=== PATIENT | male | born 1970 | race Caucasian/White ===

== ENCOUNTER 2019-07-12 15:04 | Observation (INO) | payer OTHER ==
[2019-07-12 15:09] VITALS: RESP 18
[2019-07-12 15:30] LABS: Glucose,Whole Blood 119 mg/dL (75-99)
[2019-07-12] MEDS ORDERED: SODIUM CHLORIDE 0.9% 1,000 ML IV STA (15:45)
--- NOTE | 2019-07-12 16:02 | ED ---
Dizziness HPI - General Chief Complaint: Dizziness Stated Complaint: Dizzy Time Seen by Provider: 07/12/19 15:13 Source: patient, RN notes reviewed, old records reviewed Mode of arrival: ambulatory Limitations: no limitations - History of Present Illness Initial Comments: Patient is a 49-year-old male, and advises female. Presents emergency department today for evaluation for dizziness and multiple near syncopal episodes. Patient reports that he's had some episodes of chest pain, but denies current chest pain. He denies any fevers or chills or coughing. He does smoke, and does report a family history of heart disease. Patient states that he's had a few episodes where he is almost passed out completely to his head but he catches himself. Patient reports that he has had history of chronic back pain. He denies any abdominal pain or nausea. - Related Data Home Medications Medication Instructions Recorded Confirmed Cetirizine HCl [Zyrtec] 10 mg PO HS 07/12/19 07/12/19 Citalopram Hydrobromide [CeleXA] 20 mg PO HS 07/12/19 07/12/19 Fluticasone Nasal [place] [Flonase 2 spray EA NOSTRIL HS 07/12/19 07/12/19 Nasal [place]] Gabapentin [Neurontin] 100 mg PO HS 07/12/19 07/12/19 metFORMIN HCL [Glucophage] 500 mg PO BID 07/12/19 07/12/19 Allergies Allergy/AdvReac Type Severity Reaction Status Date / Time No Known Allergies Allergy Verified 07/12/19 16:05 Review of Systems ROS Statement: Those systems with pertinent positive or pertinent negative responses have been documented in the HPI. ROS Other: All systems not noted in ROS Statement are negative. Past Medical History Past Medical History: Diabetes Mellitus History of Any Multi-Drug Resistant Organisms: None Reported Past Surgical History: No Surgical Hx Reported Past Psychological History: No Psychological Hx Reported Smoking Status: Former smoker Past Alcohol Use History: Occasional Past Drug Use History: Marijuana General Exam - General Exam Comments Initial Comments: Is a 49-year-old male, indentifies as female. Alert and oriented. Limitations: no limitations General appearance: alert, in no apparent distress Head exam: Present: atraumatic, normocephalic, normal inspection Eye exam: Present: normal appearance, PERRL, EOMI. Absent: scleral icterus, conjunctival injection, periorbital swelling ENT exam: Present: normal exam, mucous membranes moist Neck exam: Present: normal inspection. Absent: tenderness, meningismus, lymphadenopathy Respiratory exam: Present: normal lung sounds bilaterally. Absent: respiratory distress, wheezes, rales, rhonchi, stridor Cardiovascular Exam: Present: regular rate, normal rhythm, normal heart sounds. Absent: systolic murmur, diastolic murmur, rubs, gallop, clicks GI/Abdominal exam: Present: soft, normal bowel sounds. Absent: distended, tenderness, guarding, rebound, rigid Extremities exam: Present: normal inspection, full ROM, normal capillary refill. Absent: tenderness, pedal edema, joint swelling, calf tenderness Back exam: Present: normal inspection Neurological exam: Present: alert, oriented X3, CN II-XII intact Psychiatric exam: Present: normal affect Skin exam: Present: warm Course Vital Signs 07/12/19 07/12/19 07/12/19 15:05 16:00 17:22 Temperature 98.5 F Pulse Rate 116 H 88 86 Respiratory 18 18 18 Rate Blood Pressure 140/87 138/105 153/90 O2 Sat by Pulse 94 L 98 99 Oximetry Medical Decision Making - Medical Decision Making Patient is a 49-year-old male, identifies as presents female. Presents today for evaluation for dizziness and near syncopal episodes. Patient reports symptoms of been worse over the past 2 days. Patient states he also had some intermittent chest pain but denies any of this time. His main complaint is the dizziness with standing as well as back pain. Patient is given IV fluids, lab work was obtained. EKG was reviewed and no acute ST changes. This time he had troponin 0.013. I discussed concern for the multiple syncopal episodes could be cardiac related. I he has no hybrid tester at this time. I discussed also with intermittent chest pain could admit the Patient for further evaluation by cardiology. Patient is agreeable to this. - Lab Data Result diagrams: 07/12/19 15:25 07/12/19 15:25 Lab Results 07/12/19 07/12/19 07/12/19 Range/Units 15:25 15:25 15:25 WBC 5.2 (3.8-10.6) k/uL RBC 4.80 (4.30-5.90) m/uL Hgb 16.0 (13.0-17.5) gm/dL Hct 48.4 (39.0-53.0) % MCV 101.0 H (80.0-100.0) fL MCH 33.3 (25.0-35.0) pg MCHC 33.0 (31.0-37.0) g/dL RDW 13.1 (11.5-15.5) % Plt Count 183 (150-450) k/uL Neutrophils % 70 % Lymphocytes % 18 % Monocytes % 8 % Eosinophils % 1 % Basophils % 1 % Neutrophils # 3.7 (1.3-7.7) k/uL Lymphocytes # 0.9 L (1.0-4.8) k/uL Monocytes # 0.4 (0-1.0) k/uL Eosinophils # 0.1 (0-0.7) k/uL Basophils # 0.1 (0-0.2) k/uL PT 10.5 (9.0-12.0) sec INR 1.0 (<1.2) Sodium 139 (137-145) mmol/L Potassium 3.7 (3.5-5.1) mmol/L Chloride 97 L (98-107) mmol/L Carbon Dioxide 29 (22-30) mmol/L Anion Gap 13 mmol/L BUN 20 (9-20) mg/dL Creatinine 0.97 (0.66-1.25) mg/dL Est GFR (CKD-EPI)AfAm >90 (>60 ml/min/1.73 sqM) Est GFR (CKD-EPI)NonAf >90 (>60 ml/min/1.73 sqM) Glucose 121 H (74-99) mg/dL POC Glucose (mg/dL) (75-99) mg/dL POC Glu Thread Milling Machine Set Up Operator ID Plasma Lactic Acid Thomas (0.7-2.0) mmol/L Calcium 9.9 (8.4-10.2) mg/dL Total Bilirubin 1.1 (0.2-1.3) mg/dL AST 147 H (17-59) U/L ALT 148 H (21-72) U/L Alkaline Phosphatase 66 (38-126) U/L Troponin I (0.000-0.034) ng/mL Total Protein 8.9 H (6.3-8.2) g/dL Albumin 4.8 (3.5-5.0) g/dL Urine Color Urine Appearance (Clear) Urine pH (5.0-8.0) Ur Specific [place] (1.001-1.035) Urine Protein (Negative) Urine Glucose (UA) (Negative) Urine Ketones (Negative) Urine Blood (Negative) Urine Nitrite (Negative) Urine Bilirubin (Negative) Urine Urobilinogen (<2.0) mg/dL Ur Leukocyte Esterase (Negative) 07/12/19 07/12/19 07/12/19 Range/Units 15:25 15:25 15:28 WBC (3.8-10.6) k/uL RBC (4.30-5.90) m/uL Hgb (13.0-17.5) gm/dL Hct (39.0-53.0) % MCV (80.0-100.0) fL MCH (25.0-35.0) pg MCHC (31.0-37.0) g/dL RDW (11.5-15.5) % Plt Count (150-450) k/uL Neutrophils % % Lymphocytes % % Monocytes % % Eosinophils % % Basophils % % Neutrophils # (1.3-7.7) k/uL Lymphocytes # (1.0-4.8) k/uL Monocytes # (0-1.0) k/uL Eosinophils # (0-0.7) k/uL Basophils # (0-0.2) k/uL PT (9.0-12.0) sec INR (<1.2) Sodium (137-145) mmol/L Potassium (3.5-5.1) mmol/L Chloride (98-107) mmol/L Carbon Dioxide (22-30) mmol/L Anion Gap mmol/L BUN (9-20) mg/dL Creatinine (0.66-1.25) mg/dL Est GFR (CKD-EPI)AfAm (>60 ml/min/1.73 sqM) Est GFR (CKD-EPI)NonAf (>60 ml/min/1.73 sqM) Glucose (74-99) mg/dL POC Glucose (mg/dL) 119 H (75-99) mg/dL POC Glu [employer] Machine Set Up Operator ID Delia Woodard Plasma Lactic Acid Thomas 1.0 (0.7-2.0) mmol/L Calcium (8.4-10.2) mg/dL Total Bilirubin (0.2-1.3) mg/dL AST (17-59) U/L ALT (21-72) U/L Alkaline Phosphatase (38-126) U/L Troponin I 0.013 (0.000-0.034) ng/mL Total Protein (6.3-8.2) g/dL Albumin (3.5-5.0) g/dL Urine Color Urine Appearance (Clear) Urine pH (5.0-8.0) Ur Specific [place] (1.001-1.035) Urine Protein (Negative) Urine Glucose (UA) (Negative) Urine Ketones (Negative) Urine Blood (Negative) Urine Nitrite (Negative) Urine Bilirubin (Negative) Urine Urobilinogen (<2.0) mg/dL Ur Leukocyte Esterase (Negative) 07/12/19 Range/Units 16:00 WBC (3.8-10.6) k/uL RBC (4.30-5.90) m/uL Hgb (13.0-17.5) gm/dL Hct (39.0-53.0) % MCV (80.0-100.0) fL MCH (25.0-35.0) pg MCHC (31.0-37.0) g/dL RDW (11.5-15.5) % Plt Count (150-450) k/uL Neutrophils % % Lymphocytes % % Monocytes % % Eosinophils % % Basophils % % Neutrophils # (1.3-7.7) k/uL Lymphocytes # (1.0-4.8) k/uL Monocytes # (0-1.0) k/uL Eosinophils # (0-0.7) k/uL Basophils # (0-0.2) k/uL PT (9.0-12.0) sec INR (<1.2) Sodium (137-145) mmol/L Potassium (3.5-5.1) mmol/L Chloride (98-107) mmol/L Carbon Dioxide (22-30) mmol/L Anion Gap mmol/L BUN (9-20) mg/dL Creatinine (0.66-1.25) mg/dL Est GFR (CKD-EPI)AfAm (>60 ml/min/1.73 sqM) Est GFR (CKD-EPI)NonAf (>60 ml/min/1.73 sqM) Glucose (74-99) mg/dL POC Glucose (mg/dL) (75-99) mg/dL POC Glu [employer] Milling Machine Set Up Operator ID Plasma Lactic Acid Thomas (0.7-2.0) mmol/L Calcium (8.4-10.2) mg/dL Total Bilirubin (0.2-1.3) mg/dL AST (17-59) U/L ALT (21-72) U/L Alkaline Phosphatase (38-126) U/L Troponin I (0.000-0.034) ng/mL Total Protein (6.3-8.2) g/dL Albumin (3.5-5.0) g/dL Urine Color Yellow Urine Appearance Clear (Clear) Urine pH 5.5 (5.0-8.0) Ur Specific [place] 1.006 (1.001-1.035) Urine Protein Trace H (Negative) Urine Glucose (UA) Negative (Negative) Urine Ketones Trace H (Negative) Urine Blood Negative (Negative) Urine Nitrite Negative (Negative) Urine Bilirubin Negative (Negative) Urine Urobilinogen <2.0 (<2.0) mg/dL Ur Leukocyte Esterase Negative (Negative) - Radiology Data Radiology results: report reviewed EKG shows normal sinus rhythm and normal EKG. Ventricular rate 96 bpm. Intervals 116 ms. QRS duration is 82 ms. QT QTC 356/449 ms. Disposition Clinical Impression: Dizziness, Syncope Disposition: HOME SELF-CARE Condition: Good Is patient prescribed a controlled substance at d/c from ED?: No Referrals: Dolores Garza MD [Primary Care Provider] - 1-2 days Time of Disposition: 17:22
--- NOTE | 2019-07-12 16:16 | XR ---
EXAMINATION TYPE: XR chest 2V DATE OF EXAM: 07/12/2019 COMPARISON: 07/15/2013 HISTORY: Chest pain TECHNIQUE: Frontal and lateral views of the chest are obtained. FINDINGS: There is no focal air space opacity. No evidence for pneumothorax. No pleural effusion. The cardiac silhouette size is within normal limits. The osseous structures are grossly intact. IMPRESSION: 1. No acute cardiopulmonary process.
[2019-07-12 16:17] LABS: Prothrombin Time 10.5 sec (9.0-12.0)
[2019-07-12 16:19] LABS: ALT 148 U/L (21-72); AST 147 U/L (17-59); African American GFR (CKD) >90 (>60 ml/min/1.73 sqM); Albumin 4.8 g/dL (3.5-5.0); Alkaline Phosphatase 66 U/L (38-126); Anion Gap 13 mmol/L; Blood Urea Nitrogen 20 mg/dL (9-20); Calcium 9.9 mg/dL (8.4-10.2); Carbon Dioxide 29 mmol/L (22-30); Chloride 97 mmol/L (98-107); Glucose 121 mg/dL (74-99); Potassium 3.7 mmol/L (3.5-5.1); Sodium 139 mmol/L (137-145); Total Bilirubin 1.1 mg/dL (0.2-1.3); Total Protein 8.9 g/dL (6.3-8.2)
[2019-07-12 16:20] LABS: Basophils # (A) 0.1 k/uL (0-0.2); Basophils % (A) 1 %; Eosinophils # (A) 0.1 k/uL (0-0.7); Eosinophils % (A) 1 %; HCT 48.4 % (39.0-53.0); Lymphocytes # (A) 0.9 k/uL (1.0-4.8); Lymphocytes % (A) 18 %; MCH 33.3 pg (25.0-35.0); Mean Platelet Volume 6.6; Monocytes # (A) 0.4 k/uL (0-1.0); Monocytes % (A) 8 %; Neutrophils # (A) 3.7 k/uL (1.3-7.7); Neutrophils % (A) 70 %; Platelet Count 183 k/uL (150-450); RDW 13.1 % (11.5-15.5); WBC 5.2 k/uL (3.8-10.6)
[2019-07-12 17:17] LABS: Appearance,Urine Clear (Clear); Bilirubin,Urine Negative (Negative); Blood,Urine Negative (Negative); Color,Urine Yellow; Glucose,Urine (UA) Negative (Negative); Ketones,Urine Trace (Negative); Leukocyte Esterase,Urine Negative (Negative); Nitrite,Urine Negative (Negative); PH, Urine 5.5 (5.0-8.0); Protein,Urine Trace (Negative); Specific Gravity,Urine 1.006 (1.001-1.035); Urobilinogen,Urine <2.0 mg/dL (<2.0)
[2019-07-12] MEDS ORDERED: KETOROLAC 30 MG/ML 1 ML VIAL IVP STA (17:20)
[2019-07-12] MEDS ORDERED: NITROGLYCERIN SL TABS 0.4 MG TAB SUBLINGUAL PRN (17:33)
[2019-07-12] MEDS: SODIUM CHLORIDE 0.9% 1,000 ML IV SCH ×2 (18:30→23:28)
[2019-07-13 03:54] LABS: Cholesterol 133 mg/dL (<200); HDL Cholesterol 31 mg/dL (40-60); LDL Cholesterol,Calculated 83 mg/dL (0-99); Triglycerides 96 mg/dL (<150)
[2019-07-13 08:03] VITALS: BP 136/86
[2019-07-13] MEDS ORDERED: ASPIRIN 325 MG TAB PO SCH (09:00)
[2019-07-13] MEDS ORDERED: ATORVASTATIN 40 MG TAB PO SCH (10:30)
--- NOTE | 2019-07-13 11:07 | US ---
EXAMINATION TYPE: US gallbladder DATE OF EXAM: 07/13/2019 COMPARISON: NONE CLINICAL HISTORY: elevated liver enzymes. Elevated liver enzymes, N/V EXAM MEASUREMENTS: Liver Length: 13.7 cm Gallbladder Wall: 0.2 cm CBD: 0.3 cm Right Kidney: 10.3 x 5.5 x 4.4 cm Pancreas: obscured by overlying midline bowel gas Liver: mildly heterogeneous, increased echogenicity, attenuating, scanned intercostally, limited by rib shadowing Gallbladder: visualized portions wnl Evidence for sonographic Ortega's sign: no CBD: visualized portions wnl, limited by overlying bowel gas Right Kidney: wnl, limited by rib shadowing Initial image saved shows gas from shadowing bowel during pancreas. Visualized liver is heterogeneous ly hyperechoic. No hepatic ductal dilatation. Evaluation for focal masses is suboptimal due to the he terogeneity. No adjacent ascites is present. IMPRESSION: Suboptimal study. Heterogeneous hyperechoic appearance of liver could reflect products of diffuse fatty infiltration or underlying hepatocellular disease. Imaging guided random biopsy for ti ssue analysis can be performed if desired.
[2019-07-13 11:23] VITALS: BMI 21.2
[2019-07-13 11:54] LABS: Glucose,Whole Blood 125 mg/dL (75-99)
--- NOTE | 2019-07-13 11:55 | ECHOF ---
Referral Reason:near syncope MEASUREMENTS -------- HEIGHT: 160.0 cm WEIGHT: 58.1 kg BP: 136/86 RVIDd: 3.2 cm (< 3.3) IVSd: 0.9 cm (0.6 - 1.1) LVIDd: 4.6 cm (3.9 - 5.3) LVPWd: 0.7 cm (0.6 - 1.1) IVSs: 1.3 cm LVIDs: 3.0 cm LVPWs: 1.2 cm LA Diam: 3.8 cm (2.7 - 3.8) LAESV Index (A-L): 22.73 ml/m Ao Diam: 2.8 cm (2.0 - 3.7) AV Cusp: 1.7 cm (1.5 - 2.6) LA Diam: 3.5 cm (2.7 - 3.8) MV EXCURSION: 19.436 mm (> 18.000) MV EF SLOPE: 97 mm/s (70 - 150) EPSS: 0.5 cm MV E Uriah: 0.72 m/s MV DecT: 162 ms MV A Uriah: 0.66 m/s MV E/A Ratio: 1.10 RAP: 5.00 mmHg RVSP: 29.15 mmHg FINDINGS -------- Sinus rhythm. This was a technically good study. LV size, wall thickness and systolic function are normal, with an EF greater than 55%. The left tiburcio tricular size is normal. The diastolic filling pattern is normal for the age of the patient 8.55. The right ventricle is normal in size. The left atrial size is normal. The right atrial size is normal. The aortic valve is trileaflet, and appears structurally normal. No aortic stenosis or regurgitation. Mild mitral regurgitation is present. No regurgitation noted There is no evidence of pulmonary hypertension. The right ventricular syst olic pressure, as measured by Doppler, is 29.15mmHg. There is no pulmonic regurgitation present. The aortic root size is normal. There is no pericardial effusion. CONCLUSIONS -------- 1. Sinus rhythm. 2. This was a technically good study. 3. LV size, wall thickness and systolic function are normal, with an EF greater than 55%. 4. The left ventricular size is normal. 5. The diastolic filling pattern is normal for the age of the patient 8.55 6. The right ventricle is normal in size. 7. The left atrial size is normal. 8. The right atrial size is normal. 9. The aortic valve is trileaflet, and appears structurally normal. No aortic stenosis or regurgitati on. 10. Mild mitral regurgitation is present. 11. No regurgitation noted 12. There is no evidence of pulmonary hypertension. 13. The right ventricular systolic pressure, as measured by Doppler, is 29.15mmHg. 14. There is no pulmonic regurgitation present. 15. The aortic root size is normal. 16. There is no pericardial effusion. MOLD TECHNICIAN: Shannon Soto RDCS
--- NOTE | 2019-07-13 12:03 | P.HPIM ---
History of Present Illness 49-year-old came with compensative lightheadedness was started yesterday. Patient was having diarrhea which appears to be viral gastroenteritis let to hypovolemia patient's orthostatic vitals are positive. Patient had an echocardiogram which did not show any valve abnormity had normal ejection fraction. Patient is found have elevated liver enzymes when questioned patient does have history of hepatitis C and some chronic liver disease and fatty liver. Patient was diagnosed with hep C which was diagnosed in 2002 was on medications for that briefly after that was discontinued. Patient will follow with gastroneurology as an outpatient for further workup for hep C and treatment. Review of Systems REVIEW OF SYSTEMS: CONSTITUTIONAL: No fever, no malaise, no fatigue. HEENT: No recent visual problems or hearing problems. Denied any sore throat. CARDIOVASCULAR: No chest pain, orthopnea, PND, no palpitations, no syncope. PULMONARY: No shortness of breath, no cough, no hemoptysis. GASTROINTESTINAL: No diarrhea, no nausea, no vomiting, no abdominal pain. NEUROLOGICAL: No headaches, no weakness, no numbness. HEMATOLOGICAL: Denies any bleeding or petechiae. GENITOURINARY: Denies any burning micturition, frequency, or urgency. MUSCULOSKELETAL/RHEUMATOLOGICAL: Denies any joint pain, swelling, or any muscle pain. ENDOCRINE: Denies any polyuria or polydipsia. The rest of the 14-point review of systems is negative. Past Medical History Past Medical History: Diabetes Mellitus, Neurologic Disorder History of Any Multi-Drug Resistant Organisms: None Reported Past Surgical History: Hernia Repair Past Anesthesia/Blood Transfusion Reactions: No Reported Reaction Past Psychological History: Anxiety, Depression Smoking Status: Former smoker Past Alcohol Use History: Occasional Past Drug Use History: Marijuana - Past Family History Father Family Medical History: Coronary Artery Disease (CAD), Diabetes Mellitus Mother Family Medical History: AICD/Pacemaker, Rheumatoid Arthritis (RA) Medications and Allergies Home Medications Medication Instructions Recorded Confirmed Type Cetirizine HCl [Zyrtec] 10 mg PO HS 07/12/19 07/12/19 History Citalopram Hydrobromide [CeleXA] 20 mg PO HS 07/12/19 07/12/19 History Fluticasone Nasal [place] [Flonase 2 spray EA NOSTRIL HS 07/12/19 07/12/19 History Nasal [place]] Gabapentin [Neurontin] 100 mg PO HS 07/12/19 07/12/19 History metFORMIN HCL [Glucophage] 500 mg PO BID 07/12/19 07/12/19 History Atorvastatin [Lipitor] 20 mg PO HS #30 tab 07/13/19 Rx Allergies Allergy/AdvReac Type Severity Reaction Status Date / Time No Known Allergies Allergy Verified 07/12/19 16:05 Physical Exam Vitals: Vital Signs Temp Pulse Pulse Pulse Pulse Pulse Resp 07/13/19 08:00 98.2 F 73 18 07/13/19 04:00 97.6 F 72 18 07/13/19 03:58 79 18 07/13/19 00:00 98.3 F 79 18 07/12/19 20:00 88 18 07/12/19 19:53 98.8 F 88 18 07/12/19 19:48 07/12/19 18:29 101 H 07/12/19 18:27 88 18 07/12/19 18:25 80 18 07/12/19 17:22 86 18 07/12/19 16:00 88 18 07/12/19 15:05 98.5 F 116 H 18 BP BP BP BP BP Pulse Ox 07/13/19 08:00 136/86 99 07/13/19 04:00 129/80 99 07/13/19 03:58 07/13/19 00:00 119/74 98 07/12/19 20:00 07/12/19 19:53 130/82 98 07/12/19 19:48 98 07/12/19 18:29 93/75 07/12/19 18:27 128/93 07/12/19 18:25 148/93 07/12/19 17:22 153/90 99 07/12/19 16:00 138/105 98 07/12/19 15:05 140/87 94 L Intake and Output 07/12/19 07/13/19 07/13/19 22:59 06:59 14:59 Other: # Voids 1 Weight 58.06 kg 58.06 kg PHYSICAL EXAMINATION: GENERAL: The patient is alert and oriented x3, not in any acute distress. Well developed, well nourished. HEENT: Pupils are round and equally reacting to light. EOMI. No scleral icterus. No conjunctival pallor. Normocephalic, atraumatic. No pharyngeal erythema. No thyromegaly. CARDIOVASCULAR: S1 and S2 present. No murmurs, rubs, or gallops. PULMONARY: Chest is clear to auscultation, no wheezing or crackles. ABDOMEN: Soft, nontender, nondistended, normoactive bowel sounds. No palpable organomegaly. MUSCULOSKELETAL: No joint swelling or deformity. EXTREMITIES: No cyanosis, clubbing, or pedal edema. NEUROLOGICAL: Gross neurological examination did not reveal any focal deficits. SKIN: No rashes. Results CBC & Chem 7: 07/12/19 15:25 07/12/19 15:25 Labs: Abnormal Lab Results - Last 24 Hours (Table) 07/12/19 07/12/19 07/12/19 Range/Units 15:25 15:25 15:28 MCV 101.0 H (80.0-100.0) fL Lymphocytes # 0.9 L (1.0-4.8) k/uL Chloride 97 L (98-107) mmol/L Glucose 121 H (74-99) mg/dL POC Glucose (mg/dL) 119 H (75-99) mg/dL AST 147 H (17-59) U/L ALT 148 H (21-72) U/L Total Protein 8.9 H (6.3-8.2) g/dL HDL Cholesterol (40-60) mg/dL Urine Protein (Negative) Urine Ketones (Negative) 07/12/19 07/13/19 07/13/19 Range/Units 16:00 03:25 11:53 MCV (80.0-100.0) fL Lymphocytes # (1.0-4.8) k/uL Chloride (98-107) mmol/L Glucose (74-99) mg/dL POC Glucose (mg/dL) 125 H (75-99) mg/dL AST (17-59) U/L ALT (21-72) U/L Total Protein (6.3-8.2) g/dL HDL Cholesterol 31 L (40-60) mg/dL Urine Protein Trace H (Negative) Urine Ketones Trace H (Negative) Thrombosis Risk Factor Assmnt - Choose All That Apply Any of the Below Risk Factors Present?: Yes Each Factor Represents 1 point: Age 41-60 years Other Risk Factors: No Other congenital or acquired thrombophilia - If yes, enter type in comment: No Thrombosis Risk Factor Assessment Total Risk Factor Score: 1 Thrombosis Risk Factor Assessment Level: Low Risk Assessment and Plan Plan: Lightheadedness, dizziness: Secondary to hypovolemia, received IV fluids pr esently doing well. Patient will be discharged today. Echocardiogram did not show any significant abnormality telemetryany significant abnormality. -Elevated liver enzymes,: Seconded to chronic liver disease from hepatitis C -Mild hyperlipidemia and mildly elevated LDL is recommending a statin, will be discharged on low-dose statin -Hepatitis C history: Follow-up with gastric body as an outpatient for further workup and management. -Depression -Type 2 diabetes mellitus with diabetic peripheral neuropathy continue with metformin.
--- NOTE | 2019-07-13 12:03 | P.DS ---
Providers Date of admission: 07/12/19 17:29 Attending physician: Ted Gallardo Consults: 07/12/19 17:33 Consult Physician Urgent Consulting Provider: Dawit Redmond Consult Reason/Comments: Syncope Do you want consulting provider notified?: Yes Primary care physician: Dolores Garza [place] [facility] Course: Please refer to my HPI Patient Condition at Discharge: Good Plan - Discharge Summary Discharge Rx Participant: No New Discharge Prescriptions: New Atorvastatin [Lipitor] 20 mg PO HS #30 tab Continue Gabapentin [Neurontin] 100 mg PO HS Fluticasone Nasal [place] [Flonase Nasal [place]] 2 spray EA NOSTRIL HS Citalopram Hydrobromide [CeleXA] 20 mg PO HS Cetirizine HCl [Zyrtec] 10 mg PO HS metFORMIN HCL [Glucophage] 500 mg PO BID Discharge Medication List Cetirizine HCl [Zyrtec] 10 mg PO HS 07/12/19 [History] Citalopram Hydrobromide [CeleXA] 20 mg PO HS 07/12/19 [History] Fluticasone Nasal [place] [Flonase Nasal [place]] 2 spray EA NOSTRIL HS 07/12/19 [History] Gabapentin [Neurontin] 100 mg PO HS 07/12/19 [History] metFORMIN HCL [Glucophage] 500 mg PO BID 07/12/19 [History] Atorvastatin [Lipitor] 20 mg PO HS #30 tab 07/13/19 [Rx] Follow up Appointment(s)/Referral(s): Dolores Garza MD [Primary Care Provider] - 3 Days Sina Smith MD [STAFF PHYSICIAN] - 2 Weeks Activity/Diet/Wound Care/Special Instructions: [facility] can be contacted at [phone] regarding your glucometer and other diabetic supplies Discharge Disposition: HOME SELF-CARE
[2019-07-13 12:08] VITALS: PULSE 81; TEMP 97.5
[2019-07-13] MEDS: SODIUM CHLORIDE 0.9% 1,000 ML IV SCH (12:49)
--- NOTE | 2019-07-13 13:15 | P.CRDCN ---
History of Present Illness History of present illness: This is a pleasant 49-year-old biologic male that identifies as a female with past medical history significant for hepatitis C, diabetes mellitus, former nicotine dependence and significant family history of premature coronary artery disease. We have been asked to see her in consultation for chest pain and dizziness. She states for the previous 3 days she has been experiencing near syncopal spells when she bends down at work. She works stocking shelves and she feels fine when she is standing but then when she bends down and stands quickly she feels extremely light headed, nauseated and weak. There has never been any positive LOC. Yesterday while she was getting ready for work in the shower the same symptoms happened however this was just while standing. There has also been intermittent tightness in the chest in the mid-sternal region. No radiation of the discomfort and not related to activity or exertion. Of note she states she has had intermittent diarrhea for the past 3 weeks and has vomiting a number of times in the last 3 days. Currently chest pain free. EKG reveals sinus mechanism with no acute ST or T-wave abnormalities. Chest x-ray is negative for an acute cardiopulmonary process. Laboratory data reviewed, CBC unremarkable, sodium 139, potassium 3.7, creatinine 0.97, AST 147, ALT 148, cardiac enzymes negative 3, LDL 83. Current daily cardiac medications include atorvastatin 20 mg daily. At the time of my exam: CONSTITUTIONAL: Denies fever. Denies chills. EYES: Denies blurred vision. Denies vision changes. Denies eye pain. EARS, NOSE, MOUTH & THROAT: Denies headache. Denies sore throat. Denies ear pain. CARDIOVASCULAR: Denies chest pain. Denies shortness of breath. Denies orthopnea. Denies PND. Denies palpitations. RESPIRATORY: Denies cough. GASTROINTESTINAL: Denies abdominal pain. Denies diarrhea. Denies constipation. Denies nausea. Denies vomiting. MUSCULOSKELETAL: Denies myalgias. INTEGUMENTARY: Denies pruitis. Denies rash. NEUROLOGIC: Denies numbness. Denies tingling. Denies weakness. PSYCHIATRIC: Denies anxiety. Denies depression. ENDOCRINE: Denies fatigue. Denies weight change. Denies polydipsia. Denies polyurina. GENITOURINARY: Denies burning, hematuria or urgency with micturation. HEMATOLOGIC: Denies history of anemia. Denies bleeding. Blood pressure 136/86 heart rate 73 afebrile maintaining oxygen saturation on room air GENERAL: This is a 49-year-old biologic male that identifies as a female in no apparent distress at the time of my examination. HEENT: Head is atraumatic, normocephalic. Pupils are equal, round. Sclerae ani cteric. Conjunctivae are clear. Mucous membranes of the mouth are moist. Neck is supple. There is no jugular venous distention. No carotid bruit is heard. LUNGS: Clear to auscultation no wheezes, rales or rhonchi. No chest wall tenderness is noted on palpation or with deep breathing. HEART: Regular rate and rhythm without murmurs, rubs or gallops. S1 and S2 heard. ABDOMEN: Soft, nontender. Bowel sounds are heard. No organomegaly noted. EXTREMITIES: No evidence of peripheral edema and no calf tenderness noted. VASCULAR: Radial and dorsalis pedis pulses palpated, no evidence of clubbing. NEUROLOGIC: Patient is awake, alert and oriented x3. ASSESSMENT Chest pain, atypical. An acute coronary event has been ruled out. Near syncope, possibly secondary to underlying viral illness with frequent episodes of diarrhea and vomiting Diabetes mellitus Dyslipidemia Former nicotine dependence, quit September 2018 History of hepatitis C in the past PLAN An acute coronary event has been ruled out. Obtain 2-D echocardiogram and Doppler study to assess cardiac structure and function. If ultrasound of the gallbladder is unremarkable would recommend proceeding with stress echocardiogram to assess for stress-induced cardiac ischemia. Thank you kindly for this consultation. Nurse Practitioner note has been reviewed, I agree with a documented findings and plan of care. Patient was seen and examined. Past Medical History Past Medical History: Diabetes Mellitus, Neurologic Disorder History of Any Multi-Drug Resistant Organisms: None Reported Past Surgical History: Hernia Repair Past Anesthesia/Blood Transfusion Reactions: No Reported Reaction Past Psychological History: Anxiety, Depression Smoking Status: Former smoker Past Alcohol Use History: Occasional Past Drug Use History: Marijuana - Past Family History Father Family Medical History: Coronary Artery Disease (CAD), Diabetes Mellitus Mother Family Medical History: AICD/Pacemaker, Rheumatoid Arthritis (RA) Medications and Allergies Home Medications Medication Instructions Recorded Confirmed Type Cetirizine HCl [Zyrtec] 10 mg PO HS 07/12/19 07/12/19 History Citalopram Hydrobromide [CeleXA] 20 mg PO HS 07/12/19 07/12/19 History Fluticasone Nasal [place] [Flonase 2 spray EA NOSTRIL HS 07/12/19 07/12/19 History Nasal [place]] Gabapentin [Neurontin] 100 mg PO HS 07/12/19 07/12/19 History metFORMIN HCL [Glucophage] 500 mg PO BID 07/12/19 07/12/19 History Atorvastatin [Lipitor] 20 mg PO HS #30 tab 07/13/19 Rx Allergies Allergy/AdvReac Type Severity Reaction Status Date / Time No Known Allergies Allergy Verified 07/12/19 16:05 Physical Exam Vitals: Vital Signs Temp Pulse Pulse Pulse Pulse Pulse Resp 07/13/19 12:00 97.5 F L 81 18 07/13/19 08:00 98.2 F 73 18 07/13/19 04:00 97.6 F 72 18 07/13/19 03:58 79 18 07/13/19 00:00 98.3 F 79 18 07/12/19 20:00 88 18 07/12/19 19:53 98.8 F 88 18 07/12/19 19:48 07/12/19 18:29 101 H 07/12/19 18:27 88 18 07/12/19 18:25 80 18 07/12/19 17:22 86 18 07/12/19 16:00 88 18 07/12/19 15:05 98.5 F 116 H 18 BP BP BP BP BP Pulse Ox 07/13/19 12:00 136/86 98 07/13/19 08:00 136/86 99 07/13/19 04:00 129/80 99 07/13/19 03:58 07/13/19 00:00 119/74 98 07/12/19 20:00 07/12/19 19:53 130/82 98 07/12/19 19:48 98 07/12/19 18:29 93/75 07/12/19 18:27 128/93 07/12/19 18:25 148/93 07/12/19 17:22 153/90 99 07/12/19 16:00 138/105 98 07/12/19 15:05 140/87 94 L Intake and Output 10/01/19 10/02/19 10/02/19 22:59 06:59 14:59 Other: # Voids 1 Weight 58.06 kg 58.06 kg Results 07/12/19 15:25 07/12/19 15:25 Cardiac Enzymes 07/12/19 07/12/19 07/12/19 Range/Units 15:25 15:25 21:23 AST 147 H (17-59) U/L Troponin I 0.013 0.016 (0.000-0.034) ng/mL 07/13/19 Range/Units 03:25 AST (17-59) U/L Troponin I <0.012 (0.000-0.034) ng/mL Coagulation 07/12/19 Range/Units 15:25 PT 10.5 (9.0-12.0) sec Lipids 07/13/19 Range/Units 03:25 Triglycerides 96 (<150) mg/dL Cholesterol 133 (<200) mg/dL HDL Cholesterol 31 L (40-60) mg/dL CBC 07/12/19 Range/Units 15:25 WBC 5.2 (3.8-10.6) k/uL RBC 4.80 (4.30-5.90) m/uL Hgb 16.0 (13.0-17.5) gm/dL Hct 48.4 (39.0-53.0) % Plt Count 183 (150-450) k/uL Comprehensive Metabolic Panel 07/12/19 Range/Units 15:25 Sodium 139 (137-145) mmol/L Potassium 3.7 (3.5-5.1) mmol/L Chloride 97 L (98-107) mmol/L Carbon Dioxide 29 (22-30) mmol/L BUN 20 (9-20) mg/dL Creatinine 0.97 (0.66-1.25) mg/dL Glucose 121 H (74-99) mg/dL Calcium 9.9 (8.4-10.2) mg/dL AST 147 H (17-59) U/L ALT 148 H (21-72) U/L Alkaline Phosphatase 66 (38-126) U/L Total Protein 8.9 H (6.3-8.2) g/dL Albumin 4.8 (3.5-5.0) g/dL Current Medications Generic Name Dose Route Start Last Admin Trade Name Freq PRN Reason Stop Dose Admin Aspirin 81 mg 07/14/19 09:00 Aspirin PO DAILY DUY Atorvastatin Calcium 40 mg 07/13/19 10:30 07/13/19 12:45 Lipitor PO 40 mg DAILY DUY Administration Sodium Chloride 1,000 mls @ 120 mls/hr 07/12/19 17:45 07/13/19 12:49 Saline 0.9% IV 120 mls/hr .Q8H20M DUY Administration Nitroglycerin 0.4 mg 07/12/19 17:33 Nitrostat SUBLINGUAL Q5M PRN Chest Pain Intake and Output 07/12/19 07/13/19 07/13/19 22:59 06:59 14:59 Other: # Voids 1 Weight 58.06 kg 58.06 kg Patient Weight 07/14/19 06:59 Weight 58.06 kg 07/12/19 15:25 07/12/19 15:25
--- NOTE | 2019-07-13 13:27 | ECHOS ---
STRESS ECHOCARDIOGRAM INDICATIONS: Chest pain. MEDICATIONS: BASELINE HEART RATE: 81 BASELINE BLOOD PRESSURE: 132/73 MAXIMUM HEART RATE: 145 MAXIMUM BLOOD PRESSURE: 182/72 85% MPHR: 145 100% MPHR: 171 METS: 11.3 MAXIMUM STAGE REACHED: IV TOTAL EXERCISE TIME: 9 minutes and 45 seconds CLINICAL INFORMATION: Patient was exercised for a total period of 9 minutes and 45 seconds. The peak heart rate of 145 was achieved. Maximum blood pressure of 182/72 mmHg was noted. Patient did not complain of any chest pain during the test. The resting EKG shows normal sinus rhythm with normal VA interval and QRS duration and normal ST-T waves. No ST-segment depression suggestive of ischemia is noted. The baseline echocardiographic images reveals normal left ventricular chamber size with normal left ventricular systolic function. In the immediate postexercise period, normal increase in the wall thickness and contractility is noted. FINAL IMPRESSION: 1. This stress echocardiographic study is negative for stress-induced ischemia. 2. EKG portion of the stress test is not suggestive of ischemia. 3. Patient's exercise tolerance is normal. MMODL / IJN: [id number] /
[2019-07-13 17:53] LABS: Hepatitis A Antibody IgM Non-Reactive (Non-Reactive); Hepatitis B Core IgM Non-Reactive (Non-Reactive); Hepatitis B Surface Antigen Non-Reactive (Non-Reactive); Hepatitis C IgG Antibody Reactive (Non-Reactive)
[2019-07-14] MEDS ORDERED: ASPIRIN 81 MG PO SCH (09:00)
== END 2019-07-13 15:57 | disposition home or self-care (01) ==
LOC: EC 15:04 → 1SOBS 17:29
PROVIDERS: ADMIT Hospitalist; ATTEND Hospitalist
DX: E86.1 Hypovolemia (principal); B19.20 Unspecified viral hepatitis C without hepatic coma; R07.89 Other chest pain; E11.42 Type 2 diabetes mellitus with diabetic polyneuropathy; E78.5 Hyperlipidemia, unspecified; R19.7 Diarrhea, unspecified; R11.2 Nausea with vomiting, unspecified; K76.0 Fatty (change of) liver, not elsewhere classified; G89.29 Other chronic pain; M54.9 Dorsalgia, unspecified; F41.9 Anxiety disorder, unspecified; F32.9 Major depressive disorder, single episode, unspecified; Z79.84 Long term (current) use of oral hypoglycemic drugs; Z79.899 Other long term (current) drug therapy; Z87.891 Personal history of nicotine dependence; Z82.49 Family history of ischemic heart disease and other diseases of the circulatory system; Z83.3 Family history of diabetes mellitus; Z82.61 Family history of arthritis
CPT/HCPCS: 96361; 96374; 99285; 36415; 93005; 93306; 93351; 80061; 80053; 80074; 83605; 84484 ×2; 85025; 85610; 81003; 83036; 71046; 76705; G0378 ×2; J1885

== ENCOUNTER 2022-10-01 07:56 | Inpatient (IN) | payer OTHER ==
[2022-10-01] MEDS ORDERED: HYDROmorphone 0.5 MG/0.5 ML SYRINGE IVP STA (07:59)
--- NOTE | 2022-10-01 08:17 | ED ---
Lower Extremity Injury HPI - General Chief Complaint: Extremity Injury, Lower Stated Complaint: poss broken leg Time Seen by Provider: 10/01/22 07:59 Source: patient, RN notes reviewed Mode of arrival: EMS Limitations: physical limitation - History of Present Illness Initial Comments: This a 52-year-old male presents emergency Department with chief complaint of right leg injury. Patient states that he lost his balance, twisted his ankle, leg and felt a pop. Patient states that there is deformity was unable to ambulate. She was given fentanyl by EMS patient was splinted by EMS. Patient denies any paresthesias no other muscle skeletal injury - Related Data Home Medications Medication Instructions Recorded Confirmed Cetirizine HCl [Zyrtec] 10 mg PO HS 07/12/19 07/08/21 Citalopram Hydrobromide [CeleXA] 20 mg PO HS 07/12/19 07/08/21 Fluticasone Nasal [place] [Flonase 2 spray EA NOSTRIL HS 07/12/19 07/08/21 Nasal [place]] Gabapentin [Neurontin] 100 mg PO HS 07/12/19 07/08/21 metFORMIN HCL [Glucophage] 500 mg PO BID 07/12/19 07/08/21 Previous Rx's Medication Instructions Recorded Atorvastatin [Lipitor] 20 mg PO HS #30 tab 07/13/19 Allergies Allergy/AdvReac Type Severity Reaction Status Date / Time No Known Allergies Allergy Verified 10/01/22 08:02 Review of Systems ROS Statement: Those systems with pertinent positive or pertinent negative responses have been documented in the HPI. ROS Other: All systems not noted in ROS Statement are negative. Past Medical History Past Medical History: Diabetes Mellitus Additional Past Medical History / Comment(s): NEUROPATHY IN FEET. TRANSGENDER. History of Any Multi-Drug Resistant Organisms: None Reported Past Surgical History: Hernia Repair Past Anesthesia/Blood Transfusion Reactions: No Reported Reaction Past Psychological History: Anxiety, Depression Smoking Status: Former smoker Past Alcohol Use History: Occasional Past Drug Use History: Marijuana - Past Family History Father Family Medical History: Coronary Artery Disease (CAD), Diabetes Mellitus Mother Family Medical History: AICD/Pacemaker, Rheumatoid Arthritis (RA) General Exam Limitations: no limitations General appearance: alert, in no apparent distress Head exam: Present: atraumatic, normocephalic, normal inspection Respiratory exam: Present: normal lung sounds bilaterally. Absent: respiratory distress, wheezes, rales, rhonchi, stridor Cardiovascular Exam: Present: regular rate, normal rhythm, normal heart sounds. Absent: systolic murmur, diastolic murmur, rubs, gallop, clicks Extremities exam: Present: other (Right distal leg there is large area swelling, deformity noted, neurovascular intact no foot tenderness mild proximal tib-fib tenderness) Neurological exam: Present: alert Skin exam: Present: warm, dry, intact, normal color. Absent: rash Course Vital Signs 10/01/22 10/01/22 07:58 08:35 Temperature 98 F Pulse Rate 56 L Respiratory 18 Rate Blood Pressure 92/56 102/63 O2 Sat by Pulse 100 Oximetry Medical Decision Making - Medical Decision Making 52-year-old male present emergency department for right leg injury x-ray interpreted by me patient has a distal tibia fracture of the proximal fibular fracture there is mild displacement, angulation. I did discuss case with Dr. Rubin recommends patient to be placed inpatient for surgical repair he did request sick contact Naima Red to come and evaluate the patient. Patient was given adequate pain control OB admitted to the orthopedic surgery patient will be taken to surgery later patient may be left with leg elevated and not in the splint per orthopedics. - Lab Data Result diagrams: 10/01/22 08:49 - EKG Data -: EKG Interpreted by Me EKG Comments: EKG performed at a: 57 sinus bradycardia rate of 57 HI 133 QRS 98 QT /QTC 440/435 Disposition Clinical Impression: Closed fracture of right distal tibia, Fracture of proximal end of fibula Disposition: ADMITTED IP TO THIS HOSP Condition: Fair Time of Disposition: 08:32
--- NOTE | 2022-10-01 08:33 | XR ---
EXAMINATION TYPE: XR tibia fibula RT DATE OF EXAM: 10/01/2022 CLINICAL HISTORY: pain TECHNIQUE: AP and lateral images of the right tibia and fibula are obtained. COMPARISON: None. FINDINGS: There is displaced distal tibial diametaphyseal fracture with displacement of approximately 5 mm and angulation noted. There is also fracture at the fibular neck. Associated soft tissue swelli ng. No additional fractures noted. IMPRESSION: As above
[2022-10-01] MEDS ORDERED: ONDANSETRON 4 MG/2 ML VIAL IVP PRN (08:39)
[2022-10-01] MEDS ORDERED: HYDROmorphone 0.5 MG/0.5 ML SYRINGE IVP PRN ×3 (08:39→17:26)
[2022-10-01] MEDS ORDERED: NALOXONE 0.4 MG/ML 1 ML VIAL IV PRN (08:39)
[2022-10-01] MEDS ORDERED: SODIUM CHLORIDE 0.9% 1,000 ML IV ONE (08:40)
--- NOTE | 2022-10-01 09:00 | XR ---
EXAMINATION TYPE: XR chest 1V DATE OF EXAM: 10/01/2022 HISTORY: Shortness of breath. COMPARISON: 07/12/2019 TECHNIQUE: Single view of the chest is submitted. FINDINGS: Demonstrated are scattered senescent parenchymal change. There is no evidence for focal infiltrate. The heart is stable. Hilar and mediastinal structures are within normal limits. Degenerative changes are seen of the dorsal spine. IMPRESSION: 1. Chronic changes without evidence for acute pulmonary disease.
[2022-10-01 09:11] LABS: Albumin 3.9 g/dL (3.5-5.0); Calcium 8.2 mg/dL (8.4-10.2); Total Bilirubin 0.5 mg/dL (0.2-1.3); Total Protein 6.7 g/dL (6.3-8.2)
[2022-10-01 09:18] LABS: Basophils % (A) 0 %; Eosinophils # (A) 0.1 k/uL (0-0.7); Eosinophils % (A) 1 %; HCT 31.3 % (39.0-53.0); HGB 10.6 gm/dL (13.0-17.5); Lymphocytes # (A) 0.9 k/uL (1.0-4.8); Lymphocytes % (A) 7 %; MCH 33.1 pg (25.0-35.0); MCHC 33.9 g/dL (31.0-37.0); MCV 97.7 fL (80.0-100.0); Monocytes # (A) 0.4 k/uL (0-1.0); Monocytes % (A) 3 %; Neutrophils # (A) 11.2 k/uL (1.3-7.7); Neutrophils % (A) 87 %; Platelet Count 169 k/uL (150-450); RBC 3.21 m/uL (4.30-5.90); RDW 12.9 % (11.5-15.5); WBC 12.9 k/uL (3.8-10.6)
[2022-10-01] MEDS: SODIUM CHLORIDE 0.9% 1,000 ML IV SCH (09:32)
[2022-10-01 10:04] LABS: Partial Thromboplastin Time 23.5 sec (22.0-30.0); Prothrombin Time 10.7 sec (9.0-12.0)
--- NOTE | 2022-10-01 10:22 | CT ---
EXAMINATION TYPE: CT ankle RT wo con DATE OF EXAM: 10/01/2022 COMPARISON: None HISTORY: Fall, pre op CT DLP: 336.[address] of the right ankle with reconstruction imaging. TECHNIQUE: Unenhanced CT of the right ankle was performed with bone and soft tissue window settings s ubmitted in the axial coronal and sagittal planes. At a separate workstation [id number] TR imaging was obta ined. FINDINGS: Oblique fracture distal right tibial diaphysis with displacement of 6.5 mm and minimal comminution. H airline component is noted to extend into the lateral aspect of the tibial diametaphysis. No evidence for extension into the joint space. Ankle mortise is intact. Soft tissue swelling noted about the fr acture site. X-ray from earlier in the day demonstrates proximal fibular fracture. The remainder of t he imaged fibula on this examination appears intact. Vascular conditions identified. IMPRESSION: 1.Oblique fracture distal right tibial diaphysis with displacement of 6.5 mm and minimal comminution. Hairline component is noted to extend into the lateral aspect of the tibial diametaphysis.
--- NOTE | 2022-10-01 11:09 | P.HPOR ---
History of Present Illness H&P Date: 10/01/22 Chief Complaint: Right tibia fracture. This is a 52-year-old transgender male who identifies as female. She has history of falling when getting up to the bathroom this morning. Patient states that she had a syncopal episode from vertigo and fell. The patient presented to the emergency department and was found to have a tib-fib fracture. The patient is admitted to our service for surgical intervention and care. Past Medical History Past Medical History: Diabetes Mellitus Additional Past Medical History / Comment(s): NEUROPATHY IN FEET. TRANSGENDER. History of Any Multi-Drug Resistant Organisms: None Reported Past Surgical History: Hernia Repair Past Anesthesia/Blood Transfusion Reactions: No Reported Reaction Past Psychological History: Anxiety, Depression Smoking Status: Former smoker Past Alcohol Use History: Occasional Past Drug Use History: Marijuana - Past Family History Father Family Medical History: Coronary Artery Disease (CAD), Diabetes Mellitus Mother Family Medical History: AICD/Pacemaker, Rheumatoid Arthritis (RA) Medications and Allergies Home Medications Medication Instructions Recorded Confirmed Type Cetirizine HCl [Zyrtec] 10 mg PO HS 07/12/19 10/01/22 History Citalopram Hydrobromide [CeleXA] 20 mg PO HS 07/12/19 10/01/22 History Fluticasone Nasal [place] [Flonase 2 spr EA NOSTRIL HS 07/12/19 10/01/22 History Nasal [place]] Gabapentin [Neurontin] 100 mg PO BID 07/12/19 10/01/22 History Albuterol Sulfate [Ventolin HFA] 2 puff INHALATION RT-QID PRN 10/01/22 10/01/22 History Atorvastatin [Lipitor] 40 mg PO HS 10/01/22 10/01/22 History lisinopriL [Zestril] 10 mg PO HS 10/01/22 10/01/22 History metFORMIN HCL 1,000 mg PO HS 10/01/22 10/01/22 History traZODone HCL [Desyrel] 50 mg PO HS 10/01/22 10/01/22 History Allergies Allergy/AdvReac Type Severity Reaction Status Date / Time No Known Allergies Allergy Verified 10/01/22 09:29 Physical Examination This is a pleasant 52-year-old transgender male who identifies as female presenting in no acute distress. The patient is alert and oriented 3. Full cervical spine motion without difficulty or pain. Nontender over the cervical paraspinal musculature. Exam of the upper extremity reveals full shoulder, elbow, wrist and finger motion bilaterally. Neurovascular status to upper extremities is intact. Exam of the lower extremities reveals slight deformity to the lower leg on the right. There is bony prominence about the mid to distal third of the tibia. Full foot and ankle motion without difficulty or pain. Pedal pulse is +2/4. No hip irritability noted. Neurovascular status to the lower extremities is intact. Results Rays reveal a mid-to distal third tibial shaft fracture with comminution and extension of the fracture distally. There is also a proximal fibular fracture. - Labs Labs: Abnormal Lab Results - Last 24 Hours (Table) 10/01/22 10/01/22 Range/Units 08:49 08:49 WBC 12.9 H (3.8-10.6) k/uL RBC 3.21 L (4.30-5.90) m/uL Hgb 10.6 L (13.0-17.5) gm/dL Hct 31.3 L (39.0-53.0) % Neutrophils # 11.2 H (1.3-7.7) k/uL Lymphocytes # 0.9 L (1.0-4.8) k/uL BUN 24 H (9-20) mg/dL Creatinine 1.78 H (0.66-1.25) mg/dL Glucose 215 H (74-99) mg/dL Calcium 8.2 L (8.4-10.2) mg/dL H & H 10/01/22 Range/Units 08:49 Hgb 10.6 L (13.0-17.5) gm/dL Hct 31.3 L (39.0-53.0) % Result Diagrams: 10/01/22 08:49 10/01/22 08:49 Assessment and Plan (1) Closed fracture of right distal tibia Current Visit: Yes Status: Acute Code(s): S82.301A - UNSP FRACTURE OF LOWER END OF RIGHT TIBIA, INIT FOR CLOS FX SNOMED Code(s): 686491458 (2) Fracture of proximal end of fibula Current Visit: Yes Status: Acute Code(s): S82.839A - OTH FRACTURE OF UPPER AND LOWER END OF UNSP FIBULA, INIT SNOMED Code(s): 26613153 (3) Diabetes Current Visit: No Status: Acute Code(s): E11.9 - TYPE 2 DIABETES MELLITUS WITHOUT COMPLICATIONS SNOMED Code(s): 73859059 (4) Dizziness Current Visit: No Status: Acute Code(s): R42 - DIZZINESS AND GIDDINESS SNOMED Code(s): 540309021 (5) Syncope Current Visit: No Status: Acute Code(s): R55 - SYNCOPE AND COLLAPSE SNOMED Code(s): 525098281 Plan: The clinical and x-ray findings are discussed with the patient. It is recommend that the patient be taken to OR today for closed reduction with insertion of intramedullary nail with possible ORIF of the tibia. The procedures discussed in detail including the possible risks and outcomes of the surgery. The patient has been admitted to our service today. Anticipate length of stay 1-2 days postoperatively.
[2022-10-01] MEDS ORDERED: ALBUTEROL NEBULIZED 2.5 MG/3 ML INHALATION PRN (11:59)
[2022-10-01] MEDS ORDERED: LACTATED RINGERS 1,000 ML IV ONE ×2 (13:04→16:13)
[2022-10-01 13:14] LABS: Glucose,Whole Blood 162 mg/dL (70-110)
[2022-10-01] MEDS ORDERED: ONDANSETRON 4 MG/2 ML VIAL IVP ONE (13:42)
[2022-10-01] MEDS ORDERED: fentaNYL (PF) 50 MCG/1 ML VIAL IVP ONE (14:18)
--- NOTE | 2022-10-01 14:51 | P.CONS ---
History of Present Illness - Reason for Consult Acute renal failure - History of Present Illness 52-year-old male came in after a fall and found to have it tib-fib fracture. Patient is a lost balance felt a pop it. Patient was lightheaded patient denied any nausea vomiting diarrhea. Patient denied fever chills. It has acute renal failure with elevated creatinine of 1.7 baseline creatinine around 0.9 patient does have history of diabetes mellitus. REVIEW OF SYSTEMS: CONSTITUTIONAL: No fever, no malaise, no fatigue. HEENT: No recent visual problems or hearing problems. Denied any sore throat. CARDIOVASCULAR: No chest pain, orthopnea, PND, no palpitations. PULMONARY: No shortness of breath, no cough, no hemoptysis. GASTROINTESTINAL: No diarrhea, no nausea, no vomiting, no abdominal pain. NEUROLOGICAL: No headaches, no weakness, no numbness. HEMATOLOGICAL: Denies any bleeding or petechiae. GENITOURINARY: Denies any burning micturition, frequency, or urgency. MUSCULOSKELETAL/RHEUMATOLOGICAL: Denies any joint pain, swelling, or any muscle pain. ENDOCRINE: Denies any polyuria or polydipsia. The rest of the 14-point review of systems is negative. PHYSICAL EXAMINATION: GENERAL: The patient is alert and oriented x3, not in any acute distress. Well developed, well nourished. HEENT: Pupils are round and equally reacting to light. EOMI. No scleral icterus. No conjunctival pallor. Normocephalic, atraumatic. No pharyngeal erythema. No thyromegaly. CARDIOVASCULAR: S1 and S2 present. No murmurs, rubs, or gallops. PULMONARY: Chest is clear to auscultation, no wheezing or crackles. ABDOMEN: Soft, nontender, nondistended, normoactive bowel sounds. No palpable organomegaly. MUSCULOSKELETAL: No joint swelling or deformity. EXTREMITIES: No cyanosis, clubbing, or pedal edema. NEUROLOGICAL: Gross neurological examination did not reveal any focal deficits. SKIN: No rashes. Assessment and plan -Lightheadedness: Secondary to dehydration and intravascular volume depletion patient is already on IV fluids which is admitted to continue we'll can you to monitor. Patient will need telemetry for 24 hours EKG showed mild sinus bradycardia. -Tib-fib fracture patient is low operative risk for surgery patient is going for surgery today next and-type 2 diabetes mellitus because of poor renal function hold off on metformin -Hypertension hold off on lisinopril because of renal dysfunction -Diabetic peripheral neuropathy -Depression -Hyperlipidemia For above-mentioned chronic medical problems patient will be resumed on appropriate home medications DVT prophylaxis: As per primary service Past Medical History Past Medical History: Diabetes Mellitus Additional Past Medical History / Comment(s): NEUROPATHY IN FEET. TRANSGENDER. History of Any Multi-Drug Resistant Organisms: None Reported Past Surgical History: Hernia Repair Past Anesthesia/Blood Transfusion Reactions: No Reported Reaction Past Psychological History: Anxiety, Depression Smoking Status: Former smoker Past Alcohol Use History: Occasional Additional Past Alcohol Use History / Comment(s): QUIT IN 2016, 5 CIG PER DAY Past Drug Use History: Marijuana - Past Family History Father Family Medical History: Coronary Artery Disease (CAD), Diabetes Mellitus Mother Family Medical History: AICD/Pacemaker, Rheumatoid Arthritis (RA) Medications and Allergies Home Medications Medication Instructions Recorded Confirmed Type Cetirizine HCl [Zyrtec] 10 mg PO HS 07/12/19 10/01/22 History Citalopram Hydrobromide [CeleXA] 20 mg PO HS 07/12/19 10/01/22 History Fluticasone Nasal [place] [Flonase 2 spr EA NOSTRIL HS 07/12/19 10/01/22 History Nasal [place]] Gabapentin [Neurontin] 100 mg PO BID 07/12/19 10/01/22 History Albuterol Sulfate [Ventolin HFA] 2 puff INHALATION RT-QID PRN 10/01/22 10/01/22 History Atorvastatin [Lipitor] 40 mg PO HS 10/01/22 10/01/22 History lisinopriL [Zestril] 10 mg PO HS 10/01/22 10/01/22 History metFORMIN HCL 1,000 mg PO HS 10/01/22 10/01/22 History traZODone HCL [Desyrel] 50 mg PO HS 10/01/22 10/01/22 History Allergies Allergy/AdvReac Type Severity Reaction Status Date / Time No Known Allergies Allergy Verified 10/01/22 09:29 Physical Exam Vitals: Vital Signs Temp Pulse Pulse Resp BP BP Pulse Ox 10/01/22 13:07 97.8 F 63 17 121/62 98 10/01/22 12:43 97.7 F 68 17 123/67 98 10/01/22 11:32 64 18 110/68 100 10/01/22 08:35 102/63 10/01/22 07:58 98 F 56 L 18 92/56 100 Intake and Output 09/30/22 10/01/22 10/01/22 22:59 06:59 14:59 Other: Weight 58.967 kg Results CBC & Chem 7: 10/01/22 08:49 10/01/22 08:49 Labs: Abnormal Lab Results - Last 24 Hours (Table) 10/01/22 10/01/22 10/01/22 Range/Units 08:49 08:49 13:12 WBC 12.9 H (3.8-10.6) k/uL RBC 3.21 L (4.30-5.90) m/uL Hgb 10.6 L (13.0-17.5) gm/dL Hct 31.3 L (39.0-53.0) % Neutrophils # 11.2 H (1.3-7.7) k/uL Lymphocytes # 0.9 L (1.0-4.8) k/uL BUN 24 H (9-20) mg/dL Creatinine 1.78 H (0.66-1.25) mg/dL Glucose 215 H (74-99) mg/dL POC Glucose (mg/dL) 162 H (70-110) mg/dL Calcium 8.2 L (8.4-10.2) mg/dL
[2022-10-01] MEDS ORDERED: PROPOFOL 10 MG/ML 20 ML VIAL IV ONE (15:32)
[2022-10-01] MEDS ORDERED: fentaNYL (PF) 50 MCG/ML 2 ML AMP ONE (15:32)
[2022-10-01] MEDS ORDERED: ceFAZolin 1,000 MG VIAL ONE (15:32)
[2022-10-01] MEDS ORDERED: MIDAZOLAM 2 MG/2 ML VIAL ONE (15:32)
[2022-10-01] MEDS ORDERED: SODIUM CHLORIDE 0.9% 100 ML BAG ONE (15:32)
[2022-10-01] MEDS ORDERED: ceFAZolin 1,000 MG VIAL IVPB ONE (15:37)
[2022-10-01] MEDS ORDERED: ceFAZolin 1,000 MG in SODIUM CHLORIDE 0.9% 1,000 ML IRRIGATION ONE (16:14)
[2022-10-01] MEDS ORDERED: diphenhydrAMINE 25 MG CAP PO PRN (17:26)
[2022-10-01] MEDS ORDERED: HYDROmorphone 1 MG/ML 1 ML SYRINGE IVP PRN (17:26)
[2022-10-01] MEDS ORDERED: HYDROcodone/APAP 5-325MG 1 EACH TAB PO PRN (17:26)
[2022-10-01] MEDS ORDERED: SENNOSIDES-DOCUSATE SODIUM 1 EACH TAB PO PRN (17:26)
[2022-10-01] MEDS ORDERED: TEMAZEPAM 15 MG CAP PO PRN (17:26)
[2022-10-01 17:41] LABS: Glucose,Whole Blood 120 mg/dL (70-110)
--- NOTE | 2022-10-01 17:48 | FL ---
Intraoperative/procedural fluoroscopic services were provided. Total fluoroscopy time is 1.34 minutes with a total of 6 submitted images to PACS. Please see the operative/procedural note for further det ails.
[2022-10-01] MEDS: LACTATED RINGERS 1,000 ML IV SCH (18:40)
[2022-10-01 19:29] LABS: Glucose,Whole Blood 127 mg/dL (70-110)
[2022-10-01] MEDS: HYDROcodone/APAP 5-325MG 1 EACH TAB PO PRN (20:34)
[2022-10-01] MEDS: GABAPENTIN 100 MG CAP PO SCH (20:34)
[2022-10-01] MEDS ORDERED: ATORVASTATIN 40 MG TAB PO SCH (21:00)
[2022-10-01] MEDS ORDERED: FLUTICASONE 50MCG/SPRAY NASAL 16GM EA NOSTRIL SCH (21:00)
[2022-10-01] MEDS ORDERED: CITALOPRAM HYDROBROMIDE 20 MG TAB PO SCH (21:00)
[2022-10-01] MEDS ORDERED: LORATADINE 10 MG TAB PO SCH (21:00)
[2022-10-01] MEDS ORDERED: traZODone HCL 50 MG TAB PO SCH (21:00)
[2022-10-02] MEDS: HYDROcodone/APAP 5-325MG 1 EACH TAB PO PRN ×2 (05:57→11:01)
[2022-10-02 06:00] LABS: Glucose,Whole Blood 161 mg/dL (70-110)
[2022-10-02] MEDS: GABAPENTIN 100 MG CAP PO SCH (08:02)
[2022-10-02] MEDS: ASPIRIN 81 MG PO SCH ×2 (08:02→10:18)
[2022-10-02 08:56] LABS: Basophils # (A) 0.02 X 10*3/uL (0.00-0.10); Basophils % (A) 0.3 %; Eosinophils # (A) 0.08 X 10*3/uL (0.04-0.35); Eosinophils % (A) 1.1 %; HCT 26.1 % (37.2-50.0); HGB 8.5 g/dL (12.0-17.0); Immature Grans, Automated 0.3 %; Lymphocytes # (A) 1.32 X 10*3/uL (0.90-5.00); Lymphocytes % (A) 17.5 %; MCH 32.7 pg (27.0-32.0); MCHC 32.6 g/dL (32.0-37.0); MCV 100.4 fL (80.0-97.0); Mean Platelet Volume 9.6 fL (9.5-12.2); Monocytes # (A) 0.68 X 10*3/uL (0.20-1.00); NRBC Per 100 WBC 0 /100 WBCS (0.0-0.0); Neutrophils # (A) 5.41 X 10*3/uL (1.80-7.70); Neutrophils % (A) 71.8 %; Platelet Count 173 X 10*3/uL (140-440); RDW 12.5 % (11.5-14.5); WBC 7.53 X 10*3/uL (4.50-10.00)
[2022-10-02 09:03] VITALS: BP 108/64; PULSE 71; RESP 16; TEMP 99.1
--- NOTE | 2022-10-02 10:17 | P.DS ---
Providers Date of admission: 10/01/22 08:32 Expected date of discharge: 10/02/22 Attending physician: Niraj Rubin Consults: 10/01/22 08:39 Consult Physician Urgent Consulting Provider: Doron Espinoza Consult Reason/Comments: Medical management Do you want consulting provider notified?: Yes Primary care physician: Keisha Ganesh - Discharge Diagnosis(es) (1) Closed fracture of right distal tibia Current Visit: Yes Status: Acute (2) Fracture of proximal end of fibula Current Visit: Yes Status: Acute (3) Diabetes Current Visit: No Status: Acute (4) Dizziness Current Visit: No Status: Acute (5) Syncope Current Visit: No Status: Acute Hospital Course: This is a 52-year-old transgender male who identifies as female. She has history of falling when getting up to the bathroom yesterday morning. Patient states that she had a syncopal episode from vertigo and fell. The patient presented to the emergency department and was found to have a tib-fib fracture. The patient is admitted to our service for surgical intervention and care. She was taken to surgery yesterday for close reduction with insertion of intramedullary nail right tibia. The procedure was performed without complication or sequelae. She is doing well postoperatively. She is currently on telemetry to evaluate for her dizzy spell. She may be discharged to home today if cleared medically. Please see med rec for accurate list of home medica tions. Patient Condition at Discharge: Stable Plan - Discharge Summary New Discharge Prescriptions: New HYDROcodone/APAP 7.5-325MG [[place] 7.5-325] 1 - 2 tab PO Q6HR PRN #32 tab PRN Reason: Pain Aspirin [Adult Low Dose Aspirin EC] 81 mg PO BID #1 tab Sennosides-Docusate Sodium [Senokot-S] 1 tab PO BID #60 tablet No Action Gabapentin [Neurontin] 100 mg PO BID Fluticasone Nasal [place] [Flonase Nasal [place]] 2 spr EA NOSTRIL HS Citalopram Hydrobromide [CeleXA] 20 mg PO HS Cetirizine HCl [Zyrtec] 10 mg PO HS Albuterol Sulfate [Ventolin HFA] 2 puff INHALATION RT-QID PRN PRN Reason: Shortness Of Breath traZODone HCL [Desyrel] 50 mg PO HS metFORMIN HCL 1,000 mg PO HS Atorvastatin [Lipitor] 40 mg PO HS lisinopriL [Zestril] 10 mg PO HS Discharge Medication List Cetirizine HCl [Zyrtec] 10 mg PO HS 07/12/19 [History] Citalopram Hydrobromide [CeleXA] 20 mg PO HS 07/12/19 [History] Fluticasone Nasal [place] [Flonase Nasal [place]] 2 spr EA NOSTRIL HS 07/12/19 [History] Gabapentin [Neurontin] 100 mg PO BID 07/12/19 [History] Albuterol Sulfate [Ventolin HFA] 2 puff INHALATION RT-QID PRN 10/01/22 [History] Aspirin [Adult Low Dose Aspirin EC] 81 mg PO BID #1 tab 10/01/22 [Rx] Atorvastatin [Lipitor] 40 mg PO HS 10/01/22 [History] HYDROcodone/APAP 7.5-325MG [[place] 7.5-325] 1 - 2 tab PO Q6HR PRN #32 tab 10/01/22 [Rx] Sennosides-Docusate Sodium [Senokot-S] 1 tab PO BID #60 tablet 10/01/22 [Rx] lisinopriL [Zestril] 10 mg PO HS 10/01/22 [History] metFORMIN HCL 1,000 mg PO HS 10/01/22 [History] traZODone HCL [Desyrel] 50 mg PO HS 10/01/22 [History] Follow up Appointment(s)/Referral(s): Naima Red, PAC [PHYSICIAN [facility]] - 2 Weeks None,Stated [REFERRING] - 1-2 days Ambulatory/Diagnostic Orders: Walker [DME.AMB1] Location: None Selected Activity/Diet/Wound Care/Special Instructions: Toe touch wt bearing right leg w walker. Maintain splint. Discharge Disposition: HOME SELF-CARE
[2022-10-02] MEDS: LACTATED RINGERS 1,000 ML IV SCH (10:18)
[2022-10-02] MEDS: SODIUM CHLORIDE 0.9% 1,000 ML IV SCH ×2 (10:18→12:45)
[2022-10-02 11:04] LABS: Glucose,Whole Blood 265 mg/dL (70-110)
--- NOTE | 2022-10-02 12:13 | CA ---
Transthoracic Echo Report Name: Omid Mojica Age: 52 Gender: U : 1970 Exam Date: 10/02/2022 09:15 Exam Location: [facility] Ht (in): 65 Wt (lb): 130 Ordering Physician: Ashley Villalobos Attending/Referring Phys: Gauge Inspector Shannon Soto RDCS Procedure CPT: Indications: syncope, fall Cardiac Hx: Technical Quality: Contrast 1: Total Dose (mL): Contrast 2: Total Dose (mL): MEASUREMENTS (Male / Female) Normal Values 2D ECHO LV Diastolic Diameter PLAX 4.8 cm 4.2 - 5.9 / 3.9 - 5.3 cm LV Systolic Diameter PLAX 3.6 cm IVS Diastolic Thickness 0.9 cm 0.6 - 1.0 / 0.6 - 0.9 cm LVPW Diastolic Thickness 1.2 cm 0.6 - 1.0 / 0.6 - 0.9 cm LV Relative Wall Thickness 0.4 RV Internal Dim ED PLAX 3.2 cm LA Systolic Diameter LX 3.3 cm 3.0 - 4.0 / 2.7 - 3.8 cm LA Volume 44.9 cm??? 18 - 58 / 22 - 52 cm??? M-MODE Aortic Root Diameter MM 3.2 cm LA Systolic Diameter MM 3.5 cm LA Ao Ratio MM 1.1 MV E Point Septal Separation 0.2 cm AV Cusp Separation MM 1.5 cm DOPPLER MV Area PHT 3.2 cm??? Mitral E Point Velocity 85.0 cm/s Mitral A Point Velocity 65.0 cm/s Mitral E to A Ratio 1.3 MV Deceleration Time 236.1 ms MV E' Velocity 9.3 cm/s Mitral E to MV E' Ratio 9.1 TR Peak Velocity 216.2 cm/s TR Peak Gradient 18.7 mmHg Right Ventricular Systolic Press 23.7 mmHg FINDINGS Left Ventricle Normal left ventricular size, wall thickness, systolic function with no obvious regional wall motion abnormalities. Left ventricular ejection fraction is estimated at 55 %. Right Ventricle The right ventricle is normal in size and function. Right ventricular systolic pressure within normal limits. Right Atrium The right atrium is normal in size. Left Atrium The left atrium is normal in size. Mitral Valve Structurally normal mitral valve without significant stenosis or prolapse. There is mild mitral regurgitation. Aortic Valve Structurally normal aortic valve without significant sclerosis or stenosis. There is no aortic regurgitation. Tricuspid Valve Structurally normal tricuspid valve without significant stenosis. Pulmonary artery systolic pressure is normal. Pulmonic Valve Structurally normal pulmonic valve without significant stenosis. There is no pulmonic regurgitation. Pericardium Normal pericardium without effusion. Aorta Normal aortic root dimension. CONCLUSIONS Normal left ventricular dimension and systolic function No significant valvular abnormalities noted Previewed by: Dr. Dawit Redmond MD (Electronically Signed) Final Date: 02 October 2022 12:13
--- NOTE | 2022-10-02 12:28 | P.OP ---
Date of Procedure: 10/01/22 Procedure(s) Performed: PREOPERATIVE DIAGNOSES: 1. Right tibial shaft comminuted displaced fracture; 2. Proximal fibular fracture at neck POSTOPERATIVE DIAGNOSES: 1 . Right tibial shaft comminuted displaced fracture; 2. Proximal fibular fracture at neck PROCEDURES PERFORMED: 1. Right tibial fracture closed reduction and intramedullary nailing; 2. Closed treatment of proximal fibular fracture ANESTHESIA: Spinal CRYSTALIZER: Naima Red PA-C (Assistance with: patient positioning, re traction, reduction, fixation, hemostasis, irrigation, closure, dressing, splint) COMPLICATIONS: None ESTIMATED BLOOD LOSS: 50 cc TOURNIQUET: 60 minutes DISPOSITION: To post-anesthesia care unit INDICATIONS: Theodore is a 52 year old trans female with a history of falling this morning and sustaining a displaced tibial shaft fracture along with a minimally displaced proximal fibular fracture. She presents to the operating room today for surgical fixation. I have explained the details of this surgery thoroughly and also explained the potential risks and complications. These are inclusive of, but not limited to: bleeding, infection, scarring, discomfort, blood vessel and nerve damage, stiffness, malunion, nonunion, compartment syndrome, weakness, need for further surgery, failure to relieve symptoms, persistence or worsening of problems, , and other risks. She is aware of these risks and agrees to proceed with surgery. The consent form has been signed. PROCEDURE: After appropriate consent was obtained, the patient was taken to the operating room and placed supine on the operating table. Spinal anesthesia was initiated. The knee was examined under anesthesia. Medial collateral, lateral collateral, anterior and posterior cruciate ligaments were all intact. Mild swelling was noted at the fracture site of the tibia. Time-out was called according to [employer] standards, confirming patient identity, surgical procedure, side, and antibiotic administration. Prepping and draping were completed in the usual aseptic fashion. The pneumotourniquet was not inflated for the case. The knee and leg were placed in flexion and supported with a triangular radiolucent positioning frame. Reduction was accomplished under C-arm guidance with the use of the frame, longitudinal traction as necessary, and the application of bone holding forcep clamps around the fracture site. Care was taken to hold the distal nondisplaced fracture of the distal tibial metaphysis in reduction using a clamp. Incision was created midline longitudinally over the patellar tendon. Careful dissection down to fascia was performed, and full thickness subcutaneous flaps were created medially and laterally to expose the tendon. Under C-arm guidance, a guidepin was placed at the standard superior location on the anterior tibial plateau. The pin was then opened using a cannulated awl and a ball tipped guidewire with a gentle bend distally was placed through the entry site and down the shaft across the fracture site. The wire passed easily with little to no resistance. Measurement was taken for approximate length of nail necessary. Next, progressive reaming was performed with flexible reamers until cortical chatter was accomplished. This was seen at 9 mm reamer, so an 8 mm nail diameter was selected. The 8x315 nail was then assembled on the back table and the interlock guides were double checked. The nail was then passed over the guidewire using gentle mallet taps until it was fully deployed. The fracture site was analyzed during this time to make sure there was no displacement. The distal end of the nail was placed close to the physeal scar of the tibia because of the extent of the distal comminution. Static proximal interlock was then placed through the outrigger lateral to medial. The outrigger was then removed and the knee was placed into 30 degrees of flexion. Distal freehand targeting was utilized to place 2 static distal interlock screws medial to lateral. These screws were placed uneventfully and screw lengths were checked with C-arm and modified as needed. Final motion check of the knee and ankle was performed under C-arm imaging to make sure the fracture remained stable and comminuted portion of the tibia did not need additional fixation. Compartments remained soft throughout the case. Vascularity of the toes showed less than 2 sec cap refill and were pink and warm. Proximal fibula fracture remained virtually nondisplaced. Thorough irrigation was performed and final hemostasis with electrocautery. Closure of the patellar incision was performed with 0 Vicryl suture for [id number] repair of the tendon, then 3-0 Vicryl in the subcutaneous tissue followed by 3-0 Monocryl running subcuticular in the skin. Cyanoacrylate layer was then applied. Portal wounds were closed with nylon. Sterile dressing was applied and then a well-padded well-molded below knee posterior splint was applied with the ankle in neutral. The patient tolerated the procedure well and was transferred to recovery room in stable condition. Sponge and needle counts were correct.
--- NOTE | 2022-10-03 02:10 | P.PN ---
Subjective Progress Note Date: 10/02/22 - Reason for Consult Medical management, tib-fib fracture - History of Present Illness 52-year-old male came in after a fall and found to have it tib-fib fracture. Patient is a lost balance felt a pop it. Patient was lightheaded patient denied any nausea vomiting diarrhea. Patient denied fever chills. It has acute renal failure with elevated creatinine of 1.7 baseline creatinine around 0.9 patient does have history of diabetes mellitus. 10/02/2022 Patient seen and evaluated in follow-up status post fixation of the tib-fib fracture with orthopedics. Patient able to work with physical therapy and tolerated although reports continued pain. Patient reporting some minimal swelling and is currently Shay bandage. Patient reports he had been having some abdominal pain along with diarrhea most likely dehydrated and reports to feeling dizziness and was initially unsure if he passed out although reports that he woke up noticing his leg was twisted in the opposite direction and was brought to the emergency department. 2-D echo currently pending and awaiting an echo report. Patient is afebrile denies chest pain or shortness of breath. Patient reports tolerating diet with no reports of nausea or vomiting. Review of systems: Constitutional: No reports of fatigue, fever, or chills Cardiovascular: No reports of chest pain or palpitations Respiratory: No reports of shortness of breath or cough GI: No reports of nausea, vomiting, or diarrhea : No reports of dysuria or retention Neurovascular: No reports of weakness or numbness, reports right lower leg pain and pain behind the kneecap PHYSICAL EXAMINATION: GENERAL: The patient is alert and oriented x3, not in any acute distress. Well developed, well nourished. HEENT: Pupils are round and equally reacting to light. EOMI. No scleral icterus. No conjunctival pallor. Normocephalic, atraumatic. No pharyngeal erythema. No thyromegaly. CARDIOVASCULAR: S1 and S2 present. No murmurs, rubs, or gallops. PULMONARY: Chest is clear to auscultation, no wheezing or crackles. ABDOMEN: Soft, nontender, nondistended, normoactive bowel sounds. No palpable organomegaly. MUSCULOSKELETAL: No joint swelling or deformity. EXTREMITIES: No cyanosis, clubbing, or pedal edema. Right lower extremity currently Shay wrapped and casted. Positive Refill less than 3 and able to wiggle toes NEUROLOGICAL: Gross neurological examination did not reveal any focal deficits. SKIN: No rashes. Assessment: -Lightheadedness and possible syncope Secondary to dehydration and intravascular volume depletion -Tib-fib fracture from a fall status post reduction and intramedullary nailing, postop day 1 -type 2 diabetes mellitus -Hypertension -Diabetic peripheral neuropathy -Depression -Hyperlipidemia -DVT prophylaxis: As per primary service -Full code Plan: Recommend continue with current medications and management of pain per orthopedics Patient had a 2-D echo showing EF of 55% Patient reports to having had dizziness and lightheadedness with possible syncope and recommended outpatient follow-up with cardiology Patient is status post reduction and intramedullary medullary nailing of the rig ht lower extremity and recommend weightbearing restrictions per orthopedics and wound care Encouraged to increase activity as tolerated and elevating right lower extremity while at rest Patient is stable for discharge today and recommend repeat labs in the outpatient setting to monitor kidney functions Recommend holding lisinopril until follow-up with primary care provider after labs have been reviewed We will continue to follow with surgery during hospitalization. Thank you kindly for this consultation. The impression and plan of care has been dictated by Ashley Villalobos, Nurse Practitioner as directed. Dr. Olga MD I have performed a history and examination and MDM of this patient, discussed the same with the dictator, and agree with the dictator's assessment and plan as written ,documented as a scribe. Based on total visit time, I have performed more than 50% of the visit. Objective - Vital Signs Vital signs: Vital Signs Temp 99.1 F 10/02/22 09:00 Pulse 71 10/02/22 09:00 Resp 16 10/02/22 09:00 BP 108/64 10/02/22 09:00 Pulse Ox 95 10/02/22 09:00 FiO2 Intake & Output 10/01/22 10/02/22 10/02/22 18:59 06:59 18:59 Intake Total 1401 Output Total 50 1350 Balance 1351 -1350 Weight 58.967 kg Intake: IV 1401 Output: Urine 1350 Estimated Blood Loss 50 - Labs CBC & Chem 7: 10/02/22 05:29 10/01/22 08:49 Labs: Abnormal Lab Results - Last 24 Hours (Table) 10/01/22 10/01/22 10/01/22 Range/Units 13:12 17:39 19:27 RBC (4.10-5.60) X 10*6/uL Hgb (12.0-17.0) g/dL Hct (37.2-50.0) % MCV (80.0-97.0) fL MCH (27.0-32.0) pg POC Glucose (mg/dL) 162 H 120 H 127 H (70-110) mg/dL 10/02/22 10/02/22 Range/Units 05:29 05:58 RBC 2.60 L (4.10-5.60) X 10*6/uL Hgb 8.5 L (12.0-17.0) g/dL Hct 26.1 L (37.2-50.0) % MCV 100.4 H (80.0-97.0) fL MCH 32.7 H (27.0-32.0) pg POC Glucose (mg/dL) 161 H (70-110) mg/dL
== END 2022-10-02 13:33 | disposition home health service (06) | DRG 493 ==
LOC: EC 07:56 → 5NMEDONC 08:32 → EDSEX 08:32 → 4SSUR 10:25
PROVIDERS: ADMIT Orthopaedic Surgery; ATTEND Orthopaedic Surgery
PROC: 0QSJ35Z Reposition Right Fibula with External Fixation Device, Percutaneous Approach (ICD-10-PCS; principal; 2022-10-02)
PROC: 0QSG36Z Reposition Right Tibia with Intramedullary Internal Fixation Device, Percutaneous Approach (ICD-10-PCS; principal; 2022-10-02)
DX: S82.301A Unspecified fracture of lower end of right tibia, initial encounter for closed fracture (principal); N17.9 Acute kidney failure, unspecified; E11.42 Type 2 diabetes mellitus with diabetic polyneuropathy; S82.831A Other fracture of upper and lower end of right fibula, initial encounter for closed fracture; E86.0 Dehydration; E86.9 Volume depletion, unspecified; E78.5 Hyperlipidemia, unspecified; I10 Essential (primary) hypertension; F32.A Depression, unspecified; F41.9 Anxiety disorder, unspecified; F64.0 Transsexualism; Z79.84 Long term (current) use of oral hypoglycemic drugs; Z79.899 Other long term (current) drug therapy; Z87.891 Personal history of nicotine dependence; X50.1XXA Overexertion from prolonged static or awkward postures, initial encounter
CPT/HCPCS: 71045; 80053; 85025; 85610; 85730; 93005; 93306; 96361; 96374; 99285

== ENCOUNTER 2022-10-04 13:15 | Emergency (ER) | payer OTHER ==
[2022-10-04 13:38] VITALS: RESP 18
[2022-10-04] MEDS ORDERED: TOPICAL SKIN ADHESIVE 1 EACH AMP TOPICAL ONE (14:24)
--- NOTE | 2022-10-04 14:59 | ED ---
Extremity Problem HPI - General Chief complaint: Extremity Problem,Nontraumatic Stated complaint: leg bleeding-post op Time Seen by Provider: 10/04/22 13:38 Source: patient, RN notes reviewed Mode of arrival: ambulatory Limitations: no limitations - History of Present Illness Initial comments: 53-year-old presents emergency Department chief complaint of bleeding from incision site. Patient was made on had surgery for broken leg. Patient noticed some mild bleeding and was concerned present emergency department. Patient does admit that has worsens some. Pain has been controlled with oral medication. - Related Data Home Medications Medication Instructions Recorded Confirmed Cetirizine HCl [Zyrtec] 10 mg PO HS 07/12/19 10/01/22 Citalopram Hydrobromide [CeleXA] 20 mg PO HS 07/12/19 10/01/22 Fluticasone Nasal [place] [Flonase 2 spr EA NOSTRIL HS 07/12/19 10/01/22 Nasal [place]] Gabapentin [Neurontin] 100 mg PO BID 07/12/19 10/01/22 Albuterol Sulfate [Ventolin HFA] 2 puff INHALATION RT-QID PRN 10/01/22 10/01/22 Atorvastatin [Lipitor] 40 mg PO HS 10/01/22 10/01/22 lisinopriL [Zestril] 10 mg PO HS 10/01/22 10/01/22 metFORMIN HCL 1,000 mg PO HS 10/01/22 10/01/22 traZODone HCL [Desyrel] 50 mg PO HS 10/01/22 10/01/22 Previous Rx's Medication Instructions Recorded Aspirin [Adult Low Dose Aspirin EC] 81 mg PO BID #1 tab 10/01/22 HYDROcodone/APAP 7.5-325MG [[place] 1 - 2 tab PO Q6HR PRN #32 tab 10/01/22 7.5-325] Sennosides-Docusate Sodium 1 tab PO BID #60 tablet 10/01/22 [Senokot-S] Allergies Allergy/AdvReac Type Severity Reaction Status Date / Time No Known Allergies Allergy Verified 10/04/22 13:38 Review of Systems ROS Statement: Those systems with pertinent positive or pertinent negative responses have been documented in the HPI. ROS Other: All systems not noted in ROS Statement are negative. Past Medical History Past Medical History: Diabetes Mellitus Additional Past Medical History / Comment(s): NEUROPATHY IN FEET. TRANSGENDER. History of Any Multi-Drug Resistant Organisms: None Reported Past Surgical History: Hernia Repair, Orthopedic Surgery Additional Past Surgical History / Comment(s): right leg Past Anesthesia/Blood Transfusion Reactions: No Reported Reaction Past Psychological History: Anxiety, Depression Smoking Status: Former smoker Past Alcohol Use History: Occasional Past Drug Use History: Marijuana - Past Family History Father Family Medical History: Coronary Artery Disease (CAD), Diabetes Mellitus Mother Family Medical History: AICD/Pacemaker, Rheumatoid Arthritis (RA) General Exam Limitations: no limitations General appearance: alert, in no apparent distress Head exam: Present: atraumatic, normocephalic, normal inspection Eye exam: Present: normal appearance, PERRL, EOMI. Absent: scleral icterus, conjunctival injection, periorbital swelling Respiratory exam: Present: normal lung sounds bilaterally. Absent: respiratory distress, wheezes, rales, rhonchi, stridor Cardiovascular Exam: Present: regular rate, normal rhythm, normal heart sounds. Absent: systolic murmur, diastolic murmur, rubs, gallop, clicks Extremities exam: Present: other (Splint noted on the right leg, neurovascular intact) Course Vital Signs 10/04/22 10/04/22 13:36 15:12 Temperature 97.4 F 98.6 F Pulse Rate 72 74 Respiratory 18 18 Rate Blood Pressure 103/51 109/70 O2 Sat by Pulse 96 95 Oximetry Procedures - Orthopedic Splinting/Casting Injury #1 Side: right Lower Extremity Injury Location: short leg, ankle Lower Extremity Immobilizer: posterior splint, synthetic pre-padded splint Other Orthopedic Equipment: walker Medical Decision Making - Medical Decision Making 52-year-old presented for bleeding from incision site status post guille placement right tibia fracture there is small area of bleeding which was thoroughly cleaned, was applied bleeding subsided patient did have splint reapplied and advised to contact orthopedics on Thursday. Disposition Clinical Impression: Status post fracture of right tibia, Post-op bleeding Disposition: HOME SELF-CARE Condition: Stable Additional Instructions: Please return to the Emergency Department if symptoms worsen or any other concerns. Contact her orthopedic surgeon on Thursday. Is patient prescribed a controlled substance at d/c from ED?: No Referrals: Keisha Andersen MD [Primary Care Provider] - 1-2 days Time of Disposition: 14:59
[2022-10-04 15:27] VITALS: BP 109/70; PULSE 74; TEMP 98.6
== END 2022-10-04 15:12 | disposition home or self-care (01) ==
LOC: EC 13:15
DX: S82.201D Unspecified fracture of shaft of right tibia, subsequent encounter for closed fracture with routine healing (principal); E11.9 Type 2 diabetes mellitus without complications; F41.9 Anxiety disorder, unspecified; F32.A Depression, unspecified; Z79.84 Long term (current) use of oral hypoglycemic drugs; Z87.891 Personal history of nicotine dependence; X58.XXXA Exposure to other specified factors, initial encounter
CPT/HCPCS: 29515; 99282

== ENCOUNTER → 2024-07-27 | Outpatient (CLI) | payer OTHER ==
[2024-07-27 15:40] LABS: HCT 32.3 % (39.6-50.0); HGB 10.2 g/dL (13.0-17.0); MCH 33.7 pg (27.0-32.0); MCHC 31.6 g/dL (32.0-37.0); MCV 106.6 FL (80.0-97.0); Mean Platelet Volume 10.4 FL (9.5-12.2); NRBC Per 100 WBC 0 X 10*3/uL (0.00-0.01); Platelet Count 172 X 10*3/uL (140-440); RBC 3.03 X 10*6/uL (4.40-5.60); RDW 16.5 % (11.5-14.5); WBC 4.86 X 10*3/uL (4.50-10.00)
[2024-07-27 16:31] LABS: Basophils # (A) 0.02 X 10*3/uL (0.00-0.10); Basophils % (A) 0.4 %; Eosinophils # (A) 0.04 X 10*3/uL (0.04-0.35); Eosinophils % (A) 0.8 %; Lymphocytes # (A) 0.71 X 10*3/uL (0.90-5.00); Lymphocytes % (A) 14.6 %; Macrocytosis (M) 3+; Monocytes % (A) 8.2 %; Neutrophils # (A) 3.68 X 10*3/uL (1.80-7.70); Neutrophils % (A) 75.8 %
[2024-07-28 14:12] LABS: Alt. alternata IgE Class CLASS 0; Alternaria alternata IgE <0.10 kU/L (<0.10); Asperg. fumagatus IgE <0.10 kU/L (<0.10); Asperg. fumagatus IgE Class CLASS 0; Bermuda Grass IgE <0.10 kU/L (<0.10); Birch(Com.Silvr) IgE <0.10 kU/L (<0.10); Birch(Com.Silvr) IgE Class CLASS 0; Cat Epith & Dander IgE <0.10 kU/L (<0.10); Cat Epith & Dander IgE Class CLASS 0; Clad herbarum IgE <0.10 kU/L (<0.10); Clad herbarum IgE Class CLASS 0; Cockroach IgE <0.10 kU/L (<0.10); Cottonwood IgE <0.10 kU/L (<0.10); Dermato. Pteronyssinus Class CLASS 0; Dermato. Pteronyssinus IgE <0.10 kU/L (<0.10); Dermato. farinae IgE <0.10 kU/L (<0.10); Dermato. farinae IgE Class CLASS 0; Dog Dander IgE <0.10 kU/L (<0.10); Elm IgE <0.10 kU/L (<0.10); Maple (Box Elder) IgE <0.10 kU/L (<0.10); Maple (Box Elder) IgE Class CLASS 0; Mountain Cedar IgE <0.10 kU/L (<0.10); Mountain Cedar IgE Class CLASS 0; Mouse Urine IgE Class CLASS 0; Mouse Urine Proteins,IgE <0.10 kU/L (0.10); Nettle IgE <0.10 kU/L (<0.10); Nettle IgE Class CLASS 0; Oak IgE <0.10 kU/L (<0.10); Penicillium chrysogenum IgE <0.10 kU/L (<0.10); Penicillium chrysogenum IgE Cl CLASS 0; Rough Marshelder IgE <0.10 kU/L (<0.10); Rough Marshelder IgE Class CLASS 0; Timothy Grass IgE <0.10 kU/L (<0.10); Timothy Grass IgE Class CLASS 0; White Ash IgE Class CLASS 0
[2024-07-29 13:33] LABS: Alpha 1 Anti-Trypsin 127 mg/dL (90 - 200); Alpha-1-Antitrypsin Phenotype MS
== END | disposition home or self-care (01) ==
LOC: LABWHC1 11:04 → EDSEX 11:04
PROVIDERS: ATTEND Internal Medicine Pulmonary Disease
CPT/HCPCS: 36415; 82103; 82104; 82785; 85025; 86001; 86003; 86606; 86609

== ENCOUNTER → 2024-08-02 | Outpatient (CLI) | payer OTHER ==
--- NOTE | 2024-08-02 18:22 | CT ---
EXAMINATION TYPE: CT chest wo con CT DLP: 231.8 mGycm, Automated exposure control for dose reduction was used. DATE OF EXAM: 08/02/2024 5:33 PM COMPARISON: 10/01/2022 CLINICAL INDICATION: 54 years old with history of J45.909 ASTHMA; PHH, SOB, history of asthma. TECHNIQUE: Multiple axial images were obtained through the chest. Sagittal and coronal reformats were created for review. MIP was performed on a separate workstation. Contrast used: mL of (None if empty) Oral contrast used: (None if empty) FINDINGS: LUNGS/ PLEURA: The moderate right and small left pleural effusion with associated atelectasis. No air space consolidation or pneumothorax. Interlobular septal thickening. AIRWAY: Patent and unremarkable. HEART: The heart is mildly increased in size..Atherosclerosis of the arterial vasculature. MEDIASTINUM: AP window lymph node which is enlarged up to 10 mm. VASCULATURE: No aortic aneurysm. MUSCULOSKELETAL: No acute osseous abnormalities SOFT TISSUES/LYMPH NODES: Unremarkable. LOWER NECK: No significant findings. UPPER ABDOMEN: No significant findings. IMPRESSION: 1. Mild cardiomegaly, pulmonary edema with bilateral pleural effusions correlate for congestive hear t failure. 2. Severe coronary artery arteriosclerosis. 3. Prominent mediastinal lymph nodes 1 4. Support line large in AP window. Short-term follow-up recommended in 3 months to ensure stability . Findings could be reactive to evidence of heart failure. Follow up recommendations for incidental pulmonary nodules, if there are any, are per [employer] [employer] or [employer] [place] [employer]. https://radiopaedia.org/articles/iezevsryop-kynlhiz-dcewjkasl-ygzseb-bopiksspphljfto-5?lang=us [facility], , 08/02/2024 6:20 PM
== END | disposition home or self-care (01) ==
LOC: RADCTMAIN 17:14
PROVIDERS: ATTEND Internal Medicine Pulmonary Disease
CPT/HCPCS: 71250

== ENCOUNTER → 2024-11-08 | Outpatient (CLI) | payer OTHER ==
[2024-11-08 20:07] LABS: Blood Urea Nitrogen 18.3 mg/dL (9.0-27.0); Calcium 8.8 mg/dL (8.7-10.3); Carbon Dioxide 30.4 mmol/L (21.6-31.8); Chloride 99 mmol/L (96-109); Glucose 242 mg/dL (70-110); Potassium 4.6 mmol/L (3.5-5.5); Sodium 137 mmol/L (135-145)
== END | disposition home or self-care (01) ==
LOC: LABWHC1 14:23
PROVIDERS: ATTEND Internal Medicine Cardiovascular Disease
DX: I50.22 Chronic systolic (congestive) heart failure (principal)
CPT/HCPCS: 36415; 80048

== ENCOUNTER → 2024-12-02 | Outpatient (CLI) | payer OTHER ==
[2024-12-02 19:20] LABS: NT-Pro-B-Type Natriuretic Pept 1566 pg/mL (0-125)
[2024-12-02 20:59] LABS: ALT 12 U/L (8-44); AST 21 U/L (13-35); Albumin 4.3 g/dL (3.8-4.9); Albumin/Globulin Ratio 1.54 Ratio (1.60-3.17); Alkaline Phosphatase 80 U/L (41-126); BUN/Creat Ratio 14.36 Ratio (12.00-20.00); Blood Urea Nitrogen 15.8 mg/dL (9.0-27.0); Calcium 9.5 mg/dL (8.7-10.3); Carbon Dioxide 25.7 mmol/L (21.6-31.8); Chloride 100 mmol/L (96-109); Globulin 2.8 g/dL (1.6-3.3); Glucose 266 mg/dL (70-110); Potassium 4.4 mmol/L (3.5-5.5); Sodium 139 mmol/L (135-145); Total Bilirubin 0.5 mg/dL (0.3-1.2); Total Protein 7.1 g/dL (6.2-8.2)
== END | disposition home or self-care (01) ==
LOC: LABWHC1 13:33
PROVIDERS: ATTEND Family Medicine
DX: I50.22 Chronic systolic (congestive) heart failure (principal); R06.02 Shortness of breath
CPT/HCPCS: 36415; 80053; 83880